=== PATIENT | male | born 1955 | race Hispanic/Latino ===

== ENCOUNTER 2021-09-30 11:17 | Outpatient (CLI) | payer BC ==
[2021-10-01 11:19] LABS: SARS-CoV-2 PCR by NAA Not Detected (NotDetected)
== END 2021-09-30 11:18 | disposition home or self-care (01) ==
LOC: CSHLAB 11:17
PROVIDERS: ATTEND Internal Medicine Gastroenterology
DX: Z20.822 Contact with and (suspected) exposure to COVID-19 (principal)
CPT/HCPCS: U0003; U0005

== ENCOUNTER 2021-10-01 09:03 | Day surgery (SDC) | payer BC ==
[2021-09-29 11:53] VITALS: BMI 32.3
[2021-10-01] MEDS ORDERED: Lidocaine 1% MPF 2 ML VIAL ONE (09:11)
[2021-10-01] MEDS ORDERED: PROPOFOL 20 ML ONE (09:16)
== END 2021-10-01 10:46 | disposition home or self-care (01) ==
LOC: CSHSDC 09:03
PROVIDERS: ATTEND Internal Medicine Gastroenterology
PROC: 0DBL8ZZ Excision of Transverse Colon, Via Natural or Artificial Opening Endoscopic (ICD-10-PCS; principal; 2021-10-01)
PROC: 0DBN8ZZ Excision of Sigmoid Colon, Via Natural or Artificial Opening Endoscopic (ICD-10-PCS; principal; 2021-10-01)
DX: Z08 Encounter for follow-up examination after completed treatment for malignant neoplasm (principal); Z12.11 Encounter for screening for malignant neoplasm of colon; D12.5 Benign neoplasm of sigmoid colon; Z85.038 Personal history of other malignant neoplasm of large intestine; K57.30 Diverticulosis of large intestine without perforation or abscess without bleeding; K64.9 Unspecified hemorrhoids; D50.9 Iron deficiency anemia, unspecified; E11.9 Type 2 diabetes mellitus without complications; I10 Essential (primary) hypertension; E78.5 Hyperlipidemia, unspecified
CPT/HCPCS: 36416; 88305; J2704

== ENCOUNTER 2022-01-18 11:22 | Outpatient (CLI) | payer BC ==
[2022-01-18 19:52] LABS: SARS-CoV-2 PCR by NAA Not Detected (NotDetected)
== END 2022-01-18 11:23 | disposition home or self-care (01) ==
LOC: CSHLAB 11:22
PROVIDERS: ATTEND Internal Medicine Gastroenterology
DX: Z20.822 Contact with and (suspected) exposure to COVID-19 (principal); K63.5 Polyp of colon
CPT/HCPCS: U0003; U0005

== ENCOUNTER 2022-11-18 09:38 | Outpatient (CLI) | payer OTHER ==
[2022-11-18] MEDS ORDERED: Iopamidol 300 61% 100 ML VIAL FS ONE (15:24)
[2022-11-18] MEDS ORDERED: Magnevist 469MG/ML 20 ML VIAL ONE (15:30)
== END 2022-11-18 09:39 | disposition home or self-care (01) ==
LOC: CSHCT 09:38
PROVIDERS: ATTEND Internal Medicine Hematology & Oncology
DX: C18.9 Malignant neoplasm of colon, unspecified (principal); R91.8 Other nonspecific abnormal finding of lung field; R20.2 Paresthesia of skin; R19.00 Intra-abdominal and pelvic swelling, mass and lump, unspecified site; K80.20 Calculus of gallbladder without cholecystitis without obstruction
CPT/HCPCS: 70553; 71260; 74160; 82565; A9579; Q9967

== ENCOUNTER 2023-10-06 06:09 | Day surgery (SDC) | payer OTHER ==
[2023-10-04 14:55] VITALS: BMI 33.9
[2023-10-06] MEDS ORDERED: Lidocaine 2% MPF 10 ML AMP (For Epidural Use) ONE (07:09)
[2023-10-06] MEDS ORDERED: PROPOFOL 60 ML ONE (07:10)
== END 2023-10-06 08:45 | disposition home or self-care (01) ==
LOC: CSHSDC 06:09
PROVIDERS: ATTEND Internal Medicine Gastroenterology
PROC: 0DBL8ZX Excision of Transverse Colon, Via Natural or Artificial Opening Endoscopic, Diagnostic (ICD-10-PCS; principal; 2023-10-06)
DX: C18.9 Malignant neoplasm of colon, unspecified (principal); K63.5 Polyp of colon; K64.9 Unspecified hemorrhoids; D64.9 Anemia, unspecified; E11.9 Type 2 diabetes mellitus without complications; E78.5 Hyperlipidemia, unspecified; M19.90 Unspecified osteoarthritis, unspecified site; F41.9 Anxiety disorder, unspecified; Z90.49 Acquired absence of other specified parts of digestive tract; Z88.1 Allergy status to other antibiotic agents; Z79.84 Long term (current) use of oral hypoglycemic drugs; Z79.899 Other long term (current) drug therapy
CPT/HCPCS: 88305; J2704